=== PATIENT | male | born 1965 | race Caucasian/White ===

== ENCOUNTER 2021-04-27 18:29 | Inpatient (IN) | payer MEDICARE ==
[~2021-04-27] VITALS: Ht 177.8 cm; Wt 79.4 kg
[2021-04-27] MEDS ORDERED: SODIUM CHLORIDE 0.9% 1000ML 1,000 ML IV SCH (22:15)
[2021-04-27] MEDS ORDERED: IBUPROFEN 600 MG TAB ONE (22:38)
[2021-04-27] MEDS ORDERED: CEFTRIAXONE 1 GM VIAL IV ONE (23:15)
[2021-04-27] MEDS ORDERED: CEFTRIAXONE IV ONE (23:15)
[2021-04-27] MEDS ORDERED: GENTAMICIN 120MG/NS 100ML 100 ML IV ONE (23:15)
[2021-04-27] MEDS ORDERED: SODIUM CHLORIDE 0.9% IV ONE (23:15)
[2021-04-27] MEDS ORDERED: SODIUM CHLORIDE 0.9% 1000ML 1,000 ML ONE (23:19)
[2021-04-27] MEDS ORDERED: GENTAMICIN SULFATE 100 MG in SODIUM CHLORIDE 0.9% 100 ML 100 ML IV ONE (23:30)
[2021-04-27] MEDS ORDERED: GENTAMICIN SULFATE 100 MG in SODIUM CHLORIDE 0.9% 100 ML 100 ML IV SCH (23:30)
[2021-04-27] MEDS ORDERED: ONDANSETRON HCL INJ 2MG/ML 2ML 2 MG/ML VIAL IV PRN (23:30)
[2021-04-27] MEDS ORDERED: GENTAMICIN SULFATE 320 MG in SODIUM CHLORIDE 0.9% 100 ML IV ONE (23:45)
[2021-04-28] VITALS (9 sets, daily range): BP systolic 109–133; BP diastolic 66–96
[2021-04-28] MEDS ORDERED: IBUPROFEN 600 MG TAB PO STA (00:01)
[2021-04-28] MEDS ORDERED: CEFTRIAXONE 1 GM VIAL ONE (00:18)
[2021-04-28] MEDS ORDERED: SODIUM CHLORIDE 0.9% 1000ML 1,000 ML ONE (00:37)
[2021-04-28] MEDS ORDERED: VALIUM10 MG PO (01:14)
[2021-04-28] MEDS ORDERED: FLOMAX0.4 MG PO (01:14)
[2021-04-28] MEDS ORDERED: VITAMIN E400 UNI1 PO (01:14)
[2021-04-28] MEDS ORDERED: HYDROCHLOROTHIA25 MG (01:14)
[2021-04-28] MEDS ORDERED: AMLODIPINE BESYL5 MG PO (01:14)
[2021-04-28] MEDS ORDERED: VITAMIN C500 M7 (01:14)
[2021-04-28] MEDS: GUAIFENESIN/DEXTROMETHORPHAN LIQD 5 ML UDC PO PRN ×2 (02:36→10:45)
[2021-04-28] MEDS: PHENAZOPYRIDINE HCL 100 MG TAB PO PRN ×2 (02:36→10:45)
[2021-04-28] MEDS ORDERED: DIAZEPAM 5 MG TAB PO PRN (03:30)
[2021-04-28] MEDS ORDERED: GENTAMICIN SULFATE 320 MG in SODIUM CHLORIDE 0.9% 100 ML IV ONE (03:30)
[2021-04-28] MEDS ORDERED: GENTAMICIN SULFATE 40 MG/ML 2 ML VIAL ONE ×2 (05:25→05:29)
[2021-04-28] MEDS ORDERED: CALCIUM CARBONATE 500 MG CHEWABLE TABS PO PRN (05:30)
[2021-04-28] MEDS ORDERED: SODIUM CHLORIDE 0.9% 100 ML ONE (05:30)
[2021-04-28] MEDS: SODIUM CHLORIDE 0.9% 1000ML 1,000 ML IV SCH ×2 (06:41→15:30)
[2021-04-28 07:50] LABS: BASOPHILS % 0.2 % (0.0-1.0); EOSINOPHILS % 0.2 % (0.0-6.0); HEMATOCRIT 35.6 % (38.2-49.6); LYMPHOCYTES # (AUTO) 0.9 (1.0-3.2); LYMPHOCYTES % 5.4 % (18.0-39.1); MEAN CORPUSCULAR HEMOGLOBIN 29.2 pg (28-32); MEAN CORPUSCULAR HGB CONC 33.7 g/dL (31-35); MEAN CORPUSCULAR VOLUME 86.6 fL (81-99); MONOCYTES # (AUTO) 1.4 (0.2-0.8); MONOCYTES % 8.5 % (4.4-11.3); NEUTROPHILS # (AUTO) 14.2 (2.1-6.9); PLATELET COUNT 170 x10e3/uL (140-360); RED BLOOD COUNT 4.11 x10e6/uL (4.3-5.7); RED CELL DISTRIBUTION WIDTH 12.4 % (11.7-14.4)
[2021-04-28 08:09] LABS: ALBUMIN 3.1 g/dL (3.5-5.0); ANION GAP 13.1 mmol/L (8-16); CALCIUM 8.3 mg/dL (8.4-10.2); CREATININE, SERUM 0.59 mg/dL (0.72-1.25); POTASSIUM 3.1 mmol/L (3.5-5.1)
[2021-04-28] MEDS: AMLODIPINE BESYLATE 5 MG TAB PO SCH (09:53)
[2021-04-28] MEDS: TAMSULOSIN HCL 0.4 MG CAP PO SCH (09:53)
[2021-04-28] MEDS ORDERED: POTASSIUM CHLORIDE 10MEQ EA PO NR (13:30)
[2021-04-28] MEDS: ACETAMINOPHEN 325 MG TAB PO PRN ×2 (13:50→21:54)
[2021-04-28] MEDS ORDERED: GENTAMICIN SULFATE 320 MG in SODIUM CHLORIDE 0.9% 100 ML 100 ML IV SCH (18:00)
[2021-04-28] MEDS: CEFTRIAXONE 1 GM in SODIUM CHLORIDE 0.9% 50ML 50 ML IV SCH (20:40)
[2021-04-29] VITALS (8 sets, daily range): BP systolic 115–153; BP diastolic 60–97
[2021-04-29] MEDS: SODIUM CHLORIDE 0.9% 1000ML 1,000 ML IV SCH ×3 (00:55→17:03)
[2021-04-29] MEDS: ACETAMINOPHEN 325 MG TAB PO PRN ×3 (05:05→21:00)
[2021-04-29 06:57] LABS: BASOPHILS % 0.2 % (0.0-1.0); EOSINOPHILS # (AUTO) 0.1 (0.0-0.4); EOSINOPHILS % 0.7 % (0.0-6.0); HEMATOCRIT 31.9 % (38.2-49.6); HEMOGLOBIN 11.1 g/dL (14.0-18.0); LYMPHOCYTES # (AUTO) 0.7 (1.0-3.2); LYMPHOCYTES % 7.2 % (18.0-39.1); MEAN CORPUSCULAR HEMOGLOBIN 29.8 pg (28-32); MEAN CORPUSCULAR HGB CONC 34.8 g/dL (31-35); MEAN CORPUSCULAR VOLUME 85.8 fL (81-99); MONOCYTES # (AUTO) 0.8 (0.2-0.8); MONOCYTES % 8.6 % (4.4-11.3); NEUTROPHILS # (AUTO) 7.5 (2.1-6.9); NEUTROPHILS % 82.7 % (38.7-80.0); PLATELET COUNT 158 x10e3/uL (140-360); RED BLOOD COUNT 3.72 x10e6/uL (4.3-5.7); RED CELL DISTRIBUTION WIDTH 12.6 % (11.7-14.4)
[2021-04-29 07:22] LABS: ALBUMIN 2.8 g/dL (3.5-5.0); ALBUMIN/GLOBULIN RATIO 0.9 (0.8-2.0); ANION GAP 15.1 mmol/L (8-16); CALCIUM 7.7 mg/dL (8.4-10.2); CREATININE, SERUM 0.58 mg/dL (0.72-1.25); MAGNESIUM 1.5 MG/DL (1.3-2.1); POTASSIUM 3.1 mmol/L (3.5-5.1)
[2021-04-29] MEDS: TAMSULOSIN HCL 0.4 MG CAP PO SCH (09:01)
[2021-04-29] MEDS: AMLODIPINE BESYLATE 5 MG TAB PO SCH (09:01)
[2021-04-29] MEDS: PHENAZOPYRIDINE HCL 100 MG TAB PO PRN (10:00)
[2021-04-29] MEDS ORDERED: DIAZEPAM 5 MG TAB PO SCH (17:00)
[2021-04-29] MEDS: GUAIFENESIN/DEXTROMETHORPHAN LIQD 5 ML UDC PO PRN (18:09)
[2021-04-29] MEDS: CEFTRIAXONE 1 GM in SODIUM CHLORIDE 0.9% 50ML 50 ML IV SCH (20:00)
[2021-04-29] MEDS: DIAZEPAM 5 MG TAB PO SCH (21:00)
[2021-04-30] VITALS (9 sets, daily range): BP systolic 113–139; BP diastolic 79–90
[2021-04-30] MEDS: SODIUM CHLORIDE 0.9% 1000ML 1,000 ML IV SCH ×4 (04:23→20:59)
[2021-04-30 05:24] LABS: BASOPHILS % 0.3 % (0.0-1.0); EOSINOPHILS # (AUTO) 0.1 (0.0-0.4); EOSINOPHILS % 1.5 % (0.0-6.0); HEMATOCRIT 33.7 % (38.2-49.6); HEMOGLOBIN 11.9 g/dL (14.0-18.0); LYMPHOCYTES # (AUTO) 1.1 (1.0-3.2); LYMPHOCYTES % 11.9 % (18.0-39.1); MEAN CORPUSCULAR HEMOGLOBIN 29.6 pg (28-32); MEAN CORPUSCULAR HGB CONC 35.3 g/dL (31-35); MEAN CORPUSCULAR VOLUME 83.8 fL (81-99); MONOCYTES # (AUTO) 1.1 (0.2-0.8); MONOCYTES % 11.7 % (4.4-11.3); NEUTROPHILS # (AUTO) 6.8 (2.1-6.9); NEUTROPHILS % 73.8 % (38.7-80.0); PLATELET COUNT 180 x10e3/uL (140-360); RED BLOOD COUNT 4.02 x10e6/uL (4.3-5.7); RED CELL DISTRIBUTION WIDTH 12.3 % (11.7-14.4)
[2021-04-30 06:14] LABS: ALBUMIN 2.9 g/dL (3.5-5.0); ALBUMIN/GLOBULIN RATIO 0.9 (0.8-2.0); ANION GAP 12.1 mmol/L (8-16); CALCIUM 8.1 mg/dL (8.4-10.2); CREATININE, SERUM 0.59 mg/dL (0.72-1.25); MAGNESIUM 1.5 MG/DL (1.3-2.1); POTASSIUM 3.1 mmol/L (3.5-5.1)
[2021-04-30] MEDS: AMLODIPINE BESYLATE 5 MG TAB PO SCH (09:17)
[2021-04-30] MEDS: TAMSULOSIN HCL 0.4 MG CAP PO SCH (09:17)
[2021-04-30] MEDS: ACETAMINOPHEN 325 MG TAB PO PRN ×2 (11:35→23:39)
[2021-04-30] MEDS: MEROPENEM 1 GM in SODIUM CHLORIDE 0.9% 100 ML IV SCH ×2 (16:09→23:41)
[2021-04-30] MEDS: GUAIFENESIN/DEXTROMETHORPHAN LIQD 5 ML UDC PO PRN (18:00)
[2021-04-30] MEDS: DIAZEPAM 5 MG TAB PO SCH (20:53)
[2021-04-30] MEDS: PHENAZOPYRIDINE HCL 100 MG TAB PO PRN (21:53)
[2021-05-01] VITALS (7 sets, daily range): BP systolic 113–134; BP diastolic 77–92
[2021-05-01] MEDS: SODIUM CHLORIDE 0.9% 1000ML 1,000 ML IV SCH ×4 (07:30→19:45)
[2021-05-01] MEDS: MEROPENEM 1 GM in SODIUM CHLORIDE 0.9% 100 ML IV SCH ×2 (09:00→16:00)
[2021-05-01] MEDS ORDERED: POTASSIUM CHLORIDE 10MEQ EA PO ONE (09:00)
[2021-05-01] MEDS: TAMSULOSIN HCL 0.4 MG CAP PO SCH (09:44)
[2021-05-01] MEDS: AMLODIPINE BESYLATE 5 MG TAB PO SCH (09:45)
[2021-05-01] MEDS: GUAIFENESIN/DEXTROMETHORPHAN LIQD 5 ML UDC PO PRN (17:27)
[2021-05-01] MEDS: PHENAZOPYRIDINE HCL 100 MG TAB PO PRN (18:04)
[2021-05-01] MEDS ORDERED: BENZONATATE 100 MG CAP PO PRN (19:30)
[2021-05-01] MEDS: DIAZEPAM 5 MG TAB PO SCH (21:00)
[2021-05-02] VITALS (7 sets, daily range): BP systolic 114–144; BP diastolic 82–93
[2021-05-02 06:04] LABS: BASOPHILS % 0.2 % (0.0-1.0); EOSINOPHILS # (AUTO) 0.1 (0.0-0.4); EOSINOPHILS % 1.5 % (0.0-6.0); HEMATOCRIT 33.8 % (38.2-49.6); HEMOGLOBIN 11.4 g/dL (14.0-18.0); LYMPHOCYTES # (AUTO) 1.6 (1.0-3.2); LYMPHOCYTES % 17.5 % (18.0-39.1); MEAN CORPUSCULAR HEMOGLOBIN 28.9 pg (28-32); MEAN CORPUSCULAR HGB CONC 33.7 g/dL (31-35); MEAN CORPUSCULAR VOLUME 85.8 fL (81-99); MONOCYTES # (AUTO) 1.2 (0.2-0.8); MONOCYTES % 12.9 % (4.4-11.3); NEUTROPHILS # (AUTO) 6.2 (2.1-6.9); NEUTROPHILS % 66.3 % (38.7-80.0); PLATELET COUNT 221 x10e3/uL (140-360); RED BLOOD COUNT 3.94 x10e6/uL (4.3-5.7); RED CELL DISTRIBUTION WIDTH 12.4 % (11.7-14.4)
[2021-05-02 06:29] LABS: ALBUMIN 2.9 g/dL (3.5-5.0); ALBUMIN/GLOBULIN RATIO 0.9 (0.8-2.0); ANION GAP 15.3 mmol/L (8-16); CALCIUM 8.4 mg/dL (8.4-10.2); CREATININE, SERUM 0.64 mg/dL (0.72-1.25); MAGNESIUM 1.7 MG/DL (1.3-2.1); POTASSIUM 3.3 mmol/L (3.5-5.1)
[2021-05-02] MEDS: SODIUM CHLORIDE 0.9% 1000ML 1,000 ML IV SCH ×3 (07:30→23:31)
[2021-05-02 07:54] LABS: LYMPHOCYTES % (MANUAL) 24 % (19-48); MONOCYTES % (MANUAL) 11 % (3.4-9.0); NEUTROPHILS % (MANUAL) 65 % (40-74); PLATELET ESTIMATE ADEQUATE; PLATELET MORPHOLOGY COMMENT NORMAL; RBC MORPHOLOGY COMMENT NORMAL; TOXIC GRANULATION SLIGHT
[2021-05-02] MEDS: AMLODIPINE BESYLATE 5 MG TAB PO SCH (08:54)
[2021-05-02] MEDS: MEROPENEM 1 GM in SODIUM CHLORIDE 0.9% 100 ML IV SCH ×5 (08:54→23:31)
[2021-05-02] MEDS: TAMSULOSIN HCL 0.4 MG CAP PO SCH (08:54)
[2021-05-02] MEDS: PHENAZOPYRIDINE HCL 100 MG TAB PO PRN (12:19)
[2021-05-02] MEDS ORDERED: POTASSIUM CHLORIDE 10MEQ EA PO ONE (20:00)
[2021-05-02] MEDS: DIAZEPAM 5 MG TAB PO SCH (21:56)
[2021-05-03 00:40] VITALS: BP 132/89
[2021-05-03 01:40] VITALS: BP 132/89
[2021-05-03 05:32] VITALS: BP 127/90
[2021-05-03 05:38] LABS: BASOPHILS % 0.4 % (0.0-1.0); EOSINOPHILS # (AUTO) 0.2 (0.0-0.4); EOSINOPHILS % 2.1 % (0.0-6.0); HEMATOCRIT 35.2 % (38.2-49.6); HEMOGLOBIN 12.2 g/dL (14.0-18.0); LYMPHOCYTES # (AUTO) 1.9 (1.0-3.2); LYMPHOCYTES % 19.5 % (18.0-39.1); MEAN CORPUSCULAR HEMOGLOBIN 29.6 pg (28-32); MEAN CORPUSCULAR HGB CONC 34.7 g/dL (31-35); MEAN CORPUSCULAR VOLUME 85.4 fL (81-99); MONOCYTES % 10.6 % (4.4-11.3); NEUTROPHILS # (AUTO) 6.4 (2.1-6.9); NEUTROPHILS % 65.9 % (38.7-80.0); PLATELET COUNT 261 x10e3/uL (140-360); RED BLOOD COUNT 4.12 x10e6/uL (4.3-5.7); RED CELL DISTRIBUTION WIDTH 12.3 % (11.7-14.4)
[2021-05-03 06:10] LABS: ALBUMIN/GLOBULIN RATIO 0.8 (0.8-2.0); ANION GAP 15.1 mmol/L (8-16); CREATININE, SERUM 0.58 mg/dL (0.72-1.25); POTASSIUM 4.1 mmol/L (3.5-5.1)
[2021-05-03 07:37] LABS: EOSINOPHILS % (MANUAL) 1 % (0-7); LYMPHOCYTES % (MANUAL) 17 % (19-48); MONOCYTES % (MANUAL) 4 % (3.4-9.0); NEUTROPHILS % (MANUAL) 76 % (40-74); PLATELET ESTIMATE ADEQUATE; PLATELET MORPHOLOGY COMMENT NORMAL; RBC MORPHOLOGY COMMENT NORMAL
[2021-05-03 08:05] VITALS: BP 112/91
[2021-05-03] MEDS: MEROPENEM 1 GM in SODIUM CHLORIDE 0.9% 100 ML IV SCH (08:25)
[2021-05-03] MEDS: SODIUM CHLORIDE 0.9% 1000ML 1,000 ML IV SCH (08:25)
[2021-05-03] MEDS: AMLODIPINE BESYLATE 5 MG TAB PO SCH (08:27)
[2021-05-03] MEDS: TAMSULOSIN HCL 0.4 MG CAP PO SCH (08:27)
[2021-05-03] MEDS: PHENAZOPYRIDINE HCL 100 MG TAB PO PRN (08:27)
[2021-05-03 08:29] VITALS: BP_SYST 112; BP_SYST 128; BP_DIAS 79; BP_DIAS 91
[2021-05-03 11:35] VITALS: BP 121/91
== END 2021-05-03 14:14 | disposition home or self-care (01) | DRG 872 ==
LOC: FSED 19:15 → ERHOLD 04-28 00:18 → MED/SURG3 04-28 00:49
PROVIDERS: ADMIT Internal Medicine; ATTEND Internal Medicine
DX: A41.9 Sepsis, unspecified organism (principal); N39.0 Urinary tract infection, site not specified; G12.21 Amyotrophic lateral sclerosis; F41.9 Anxiety disorder, unspecified; I10 Essential (primary) hypertension; D64.9 Anemia, unspecified; E87.6 Hypokalemia; N40.1 Benign prostatic hyperplasia with lower urinary tract symptoms; R35.0 Frequency of micturition; N31.8 Other neuromuscular dysfunction of bladder; Z20.822 Contact with and (suspected) exposure to COVID-19; B96.5 Pseudomonas (aeruginosa) (mallei) (pseudomallei) as the cause of diseases classified elsewhere
CPT/HCPCS: 36415; 71045; 74176; 74230; 76705; 80053; 81003; 82553; 83605; 83735; 83880; 84484; 85025; 87040; 87086; 87186; 96361; 97139; 99284; J0696; J1580; J2185; J7030; J7050; U0002

== ENCOUNTER 2021-05-25 20:06 | Emergency (ER) | payer MEDICARE ==
[~2021-05-25] VITALS: Ht 170.2 cm; Wt 79.4 kg
[~2021-05-25 20:06] MED LIST changes: -ACETAMINOPHEN 1000 MG/100 ML 100 ML IV ONE; -FLUCONAZOLE 200 MG/100 ML 100 ML IV ONE; -GENTAMICIN 80MG/NS 100 ML 200 ML IV ONE; -IOPAMIDOL 300MG/ML 50ML INFUS..BTL IV ONE; -PIPERACILLIN/TAZOBACTAM 3.375 GM VIAL ONE; -SODIUM CHLORIDE 0.9% 50ML 50 ML ONE
== END 2021-05-25 20:59 | disposition home or self-care (01) ==
LOC: FSED 20:30
DX: R30.0 Dysuria (principal); R33.9 Retention of urine, unspecified; G12.21 Amyotrophic lateral sclerosis
CPT/HCPCS: 51700; 99283

== ENCOUNTER → 2021-05-25 | Day surgery (SDC) | payer MEDICARE ==
[2021-05-23 09:16] LABS: BASOPHILS % 0.8 % (0.0-1.0); EOSINOPHILS # (AUTO) 0.1 (0.0-0.4); EOSINOPHILS % 2.2 % (0.0-6.0); HEMATOCRIT 39.9 % (38.2-49.6); HEMOGLOBIN 13.4 g/dL (14.0-18.0); LYMPHOCYTES # (AUTO) 1.9 (1.0-3.2); LYMPHOCYTES % 37.8 % (18.0-39.1); MEAN CORPUSCULAR HEMOGLOBIN 29.6 pg (28-32); MEAN CORPUSCULAR HGB CONC 33.6 g/dL (31-35); MEAN CORPUSCULAR VOLUME 88.3 fL (81-99); MONOCYTES # (AUTO) 0.5 (0.2-0.8); NEUTROPHILS # (AUTO) 2.5 (2.1-6.9); PLATELET COUNT 202 x10e3/uL (140-360); RED BLOOD COUNT 4.52 x10e6/uL (4.3-5.7); RED CELL DISTRIBUTION WIDTH 13.1 % (11.7-14.4)
[2021-05-23 09:33] LABS: ANION GAP 15.6 mmol/L (8-16); CREATININE, SERUM 0.72 mg/dL (0.72-1.25); POTASSIUM 3.6 mmol/L (3.5-5.1)
[~2021-05-25] MED LIST: ACETAMINOPHEN 1000 MG/100 ML 100 ML IV ONE; AMLODIPINE BESYL5 MG PO; FLOMAX0.4 MG PO; FLUCONAZOLE 200 MG/100 ML 100 ML IV ONE; GENTAMICIN 80MG/NS 100 ML 200 ML IV ONE; HYDROCHLOROTHIA25 MG; IOPAMIDOL 300MG/ML 50ML INFUS..BTL IV ONE; KRILL OIL 5001 EACH PO; PIPERACILLIN/TAZOBACTAM 3.375 GM VIAL ONE; POTASSIUM PO; SODIUM CHLORIDE 0.9% 50ML 50 ML ONE; VALIUM10 MG PO; VITAMIN C500 M7; VITAMIN E400 UNI1 PO
[2021-05-25 11:33] VITALS: BP 116/77
== END | disposition home or self-care (01) ==
LOC: OR 07:43
PROVIDERS: ATTEND Urology
DX: N40.1 Benign prostatic hyperplasia with lower urinary tract symptoms (principal); N13.8 Other obstructive and reflux uropathy; N39.0 Urinary tract infection, site not specified; N31.9 Neuromuscular dysfunction of bladder, unspecified; G47.33 Obstructive sleep apnea (adult) (pediatric); G12.21 Amyotrophic lateral sclerosis; I10 Essential (primary) hypertension; K21.9 Gastro-esophageal reflux disease without esophagitis; Z01.810 Encounter for preprocedural cardiovascular examination; Z01.812 Encounter for preprocedural laboratory examination; Z20.822 Contact with and (suspected) exposure to COVID-19
CPT/HCPCS: 52005; C9740; 36415; 74420; 80048; 85025; 87086; 87186; 93005; C1758; J1450; J1580; J2543; L8699; U0002